=== PATIENT | female | born 1935 | race Asian ===

== ENCOUNTER 2023-08-24 07:11 | Day surgery (SDC) | payer OTHER ==
[~2023-08-24] VITALS: Ht 157.5 cm; Wt 77.1 kg
[2023-08-24] MEDS ORDERED: SIMETHICONE 40 MG/0.6 ML ML ONE (07:43)
[2023-08-24] MEDS ORDERED: MIDAZOLAM HCL 5 MG/5 ML VIAL ONE (07:44)
[2023-08-24] MEDS ORDERED: fentaNYL CITRATE/PF 100 MCG/2 ML AMP ONE (07:44)
[2023-08-24 11:36] VITALS: O2SAT 98
[2023-08-24 13:24] VITALS: BP_SYST 159; PULSE 87; RESP 13
== END 2023-08-24 10:02 | disposition home or self-care (01) ==
LOC: SDS 07:11 → SMU 07:12 → SDS 10:02
PROVIDERS: ATTEND Internal Medicine
DX: R10.9 Unspecified abdominal pain (principal); K25.9 Gastric ulcer, unspecified as acute or chronic, without hemorrhage or perforation; K29.50 Unspecified chronic gastritis without bleeding; K44.9 Diaphragmatic hernia without obstruction or gangrene; I10 Essential (primary) hypertension; M19.90 Unspecified osteoarthritis, unspecified site; G43.909 Migraine, unspecified, not intractable, without status migrainosus; Z90.49 Acquired absence of other specified parts of digestive tract; Z90.710 Acquired absence of both cervix and uterus; Z91.013 Allergy to seafood; Z91.048 Other nonmedicinal substance allergy status; Z79.899 Other long term (current) drug therapy
CPT/HCPCS: 43239; 87081; 36415; 88305; 88312; 88313; G0378; J2250; J3010